=== PATIENT | male | born 1980 | race Two or more races ===

== ENCOUNTER 2021-02-24 18:15 | Emergency (ER) | payer OTHER ==
[~2021-02-24] VITALS: Ht 182.9 cm; Wt 120.5 kg
[~2021-02-24 18:15] MED LIST: NOCURR
[2021-02-24 19:46] VITALS: BP 141/98
== END 2021-02-24 19:58 | disposition home or self-care (01) ==
LOC: EMS 18:15
DX: M21.611 Bunion of right foot (principal); I10 Essential (primary) hypertension; F17.210 Nicotine dependence, cigarettes, uncomplicated; F12.90 Cannabis use, unspecified, uncomplicated
CPT/HCPCS: 99283

== ENCOUNTER 2021-08-02 14:45 | Emergency (ER) | payer OTHER ==
[~2021-08-02] VITALS: Ht 195.6 cm; Wt 119.1 kg
[2021-08-02] MEDS ORDERED: KETOROLAC TROMETHAMINE 30 MG/ML VIAL IM ONE (15:45)
[2021-08-02 16:19] LABS: COVID AG,FIA SOURCE NASOPHARYNGEAL
[2021-08-02 16:43] LABS: INFLUENZA TYPE A NEGATIVE FOR TYPE A (NEGATIVE); INFLUENZA TYPE B NEGATIVE FOR TYPE B (NEGATIVE)
[2021-08-02 18:45] VITALS: BP 135/90
== END 2021-08-02 19:01 | disposition home or self-care (01) ==
LOC: EMS 14:45
DX: J02.9 Acute pharyngitis, unspecified (principal); F17.210 Nicotine dependence, cigarettes, uncomplicated; F12.90 Cannabis use, unspecified, uncomplicated; I10 Essential (primary) hypertension; Z20.822 Contact with and (suspected) exposure to COVID-19
CPT/HCPCS: 87426; 87430; 87804; 96372; 99283; J1885; U0003

== ENCOUNTER 2022-01-23 12:14 | Emergency (ER) | payer OTHER ==
[~2022-01-23] VITALS: Ht 182.9 cm; Wt 126.8 kg
[2022-01-23 12:41] VITALS: BP 150/95
[2022-01-23] MEDS ORDERED: OXYC-38 PO (13:34)
== END 2022-01-23 14:03 | disposition home or self-care (01) ==
LOC: EMS 12:19
DX: S39.012A Strain of muscle, fascia and tendon of lower back, initial encounter (principal); I10 Essential (primary) hypertension; F12.90 Cannabis use, unspecified, uncomplicated; F17.210 Nicotine dependence, cigarettes, uncomplicated; X50.0XXA Overexertion from strenuous movement or load, initial encounter; Y93.89 Activity, other specified; Y92.89 Other specified places as the place of occurrence of the external cause; Y99.8 Other external cause status
CPT/HCPCS: 99283; Z7502

== ENCOUNTER 2024-03-06 15:42 | Emergency (ER) | payer MEDICAID, OTHER ==
[~2024-03-06] VITALS: Ht 182.9 cm; Wt 125.9 kg
[~2024-03-06 15:42] MED LIST changes: -NOCURR; +OXYC-38 PO
[2024-03-06 15:51] VITALS: BP 152/94; PULSE 64; RESP 16; TEMP 98.2
[2024-03-06 17:30] LABS: COVID AG,FIA SOURCE NASAL SWAB
[2024-03-06 17:54] LABS: SARS-COV2 (COVID) ANTIGEN,FIA Negative (Negative)
[2024-03-06] MEDS ORDERED: PENI500T2 PO (18:43)
[2024-03-06] MEDS: DEXAMETHASONE SOD PHOS 4 MG/ML 5 ML VIAL IM ONE (18:45)
== END 2024-03-06 18:56 | disposition home or self-care (01) ==
LOC: EMS 15:42
DX: J02.0 Streptococcal pharyngitis (principal); I10 Essential (primary) hypertension; F17.210 Nicotine dependence, cigarettes, uncomplicated; F12.90 Cannabis use, unspecified, uncomplicated; Z20.822 Contact with and (suspected) exposure to COVID-19
CPT/HCPCS: 99283; 87426; 87430; 96372; J1100